=== PATIENT | male | born 1930 | race Caucasian/White ===

== ENCOUNTER → 2018-12-25 | Outpatient (CLI) | payer MEDICARE ==
[~2018-12-25] MED LIST: APIX5TAB PO; LISI1TAB7 PO; METO25TA35 PO; OMEP-110 PO; TRAZ150T62 PO; VERA240T86 PO; WARF4TAB65 PO
== END | disposition home or self-care (01) ==
LOC: CFH 11:40
PROVIDERS: ATTEND Family Medicine
DX: R49.0 Dysphonia (principal)
CPT/HCPCS: 71046

== ENCOUNTER → 2019-04-11 | Outpatient (CLI) | payer MEDICARE ==
[~2019-04-11] MED LIST changes: +VERA240T10 PO; -VERA240T86 PO
== END | disposition home or self-care (01) ==
LOC: CFH 14:28
PROVIDERS: ATTEND Family Medicine
DX: R06.02 Shortness of breath (principal); Z95.0 Presence of cardiac pacemaker
CPT/HCPCS: 71046

== ENCOUNTER 2020-01-16 13:16 | Observation (INO) | payer MEDICARE ==
[~2020-01-16] VITALS: Ht 170.2 cm; Wt 69.4 kg
[~2020-01-16 13:16] MED LIST changes: +ESCI5SOL2 PO; +GUAI100L11 PO; +LISI1TAB20 PO; -LISI1TAB7 PO; +LISI30TA4 PO; +METO-93 PO
--- NOTE | 2020-01-16 13:48 | NUR ---
PT TO ROOM 24 VIA KATHI. PT WAS DISCHARGED FROM THE HOSPITAL THIS MORNING, AND THEY STOPPED AT [facility] ON THE WAY HOME TO GET HIS PRESCRIPTIONS. PT BECAME VERY WEAK AFTER WALKING FROM THE CAR TO THE PHARMACY. HE THEN BEGAN TO SWEAT AND FEEL EXTREMELY WEAK. KATHI CALLED, AND NOTICED ON INITIAL ASSESSMENT THAT BLOOD PRESSURE WAS LESS THAN 80 SYSTOLIC. IV STARTED IN RIGHT LOWER FOREARM AND 250ML NACL BOLUS GIVEN. PRESSURE INCREASED, BUT THEN IN DROPPED SIGNIFICANTLY WHEN HE STOOD UP. AFTER MUCH ASSESSMENT AND DISCUSSION, PT AGREED TO COME BACK TO ED. DAUGHTER AT BEDSIDE. PT PLACED IN GOWN, MONITOR APPLIED, WARM BLANKET GIVEN AND CALL LIGHT WITH INSTRUCTIONS. PT RESTING WITH DAUGHTER AT BEDSIDE.
[2020-01-16] MEDS ORDERED: SODIUM CHLORIDE FLUSH 10ML SYR IVF ONE (14:00)
[2020-01-16 14:07] LABS: BASOPHILS # (AUTO) 0.03 x10^3/uL (0-0.1); BASOPHILS % (AUTO) 0 % (0-1); EOSINOPHILS # (AUTO) 0.13 x10^3/uL (0-0.4); EOSINOPHILS % (AUTO) 1 % (1-7); LYMPHOCYTES # (AUTO) 1.24 x10^3/uL (1-3.4); LYMPHOCYTES % (AUTO) 13 % (22-44); MD NO; MEAN CORPUSCULAR HEMOGLOBIN 30.7 pg (27.5-34.5); MEAN CORPUSCULAR HGB CONC 32.9 g/dL (33.2-36.2); MEAN CORPUSCULAR VOLUME 93.3 fL (81-97); MEAN PLATELET VOLUME 9.3 fL (7.4-10.4); MONOCYTES # (AUTO) 0.69 x10^3/uL (0.2-0.8); MONOCYTES % (AUTO) 7 % (2-9); NEUTROPHILS # (AUTO) 7.85 x10^3/uL (1.8-6.8); NEUTROPHILS % (AUTO) 79 % (42-75); PLATELET COUNT 198 x10^3/uL (130-400); RED CELL DISTRIBUTION WIDTH 14.7 % (9.4-14.8)
[2020-01-16 14:13] LABS: ALBUMIN 3.4 g/dL (3.4-5.0); ANION GAP 4 mmol/L (5-15); CALCIUM 8.5 mg/dL (8.5-10.1); CHLORIDE 106 mmol/L (98-107); CREATININE 1.79 mg/dL (0.7-1.3)
[2020-01-16 14:16] LABS: TROPONIN I < 0.015 ng/mL (0.000-0.045)
--- NOTE | 2020-01-16 14:30 | NUR ---
PT LYING IN BED WITH FAMILY AT BEDSIDE. PT HAS NO C/O AT THIS TIME. WILL CONTINUE TO MONITOR.
--- NOTE | 2020-01-16 15:46 | NUR ---
PT RESTING IN BED. PT ABLE TO SIT UP WITHOUT DIFFICULTY FOR RN TO PLACE GOWN ON. PT DENIES ANY PAIN OR CONCERNS. PT STATES "I FEEL GREAT NOW". AWAITING MD TO COME TO ROOM. FAMILY AT BEDSIDE.
[2020-01-16] MEDS ORDERED: ACETAMINOPHEN 325 MG TABLET PO PRN (16:00)
[2020-01-16] MEDS ORDERED: LABETALOL 5MG/ML, 20ML IVPush PRN (16:00)
[2020-01-16] MEDS ORDERED: GUAIFENESIN/DM 200-20MG, 10ML UDC PO PRN (16:00)
[2020-01-16] MEDS ORDERED: LACTATED RINGERS 1,000 ML IV ONE (16:00)
[2020-01-16] MEDS ORDERED: ONDANSETRON ODT 4 MG PO PRN (16:00)
[2020-01-16] MEDS ORDERED: ONDANSETRON 2MG/ML, 2ML IVPush PRN (16:00)
[2020-01-16] MEDS ORDERED: POLYETHYLENE GLYCOL 17 GM PACKET PO PRN (16:00)
[2020-01-16] MEDS ORDERED: hydrALAzine 20 MG/ML, 1ML IVPush PRN (16:00)
[2020-01-16] MEDS ORDERED: BUTALB/APAP/CAFFEINE 50MG/325MG/40MG PO PRN ×4 (16:00→20:03)
--- NOTE | 2020-01-16 16:53 | NUR ---
REPORT TO TIFFANY. PT READIED FOR TRANSPORT.
--- NOTE | 2020-01-16 16:55 | NUR ---
RN CHARTED THAT IV WAS PLACED ON THE LEFT, IT IS ACTUALLY ON THE RIGHT.
--- NOTE | 2020-01-16 17:01 | NUR ---
REPORT TO TIFFANY DELGADILLO ON [facility]. IV REMAINS IN PLACE. PT READY FOR TRANSPORT TO FLOOR WITH DAUGHTER AT BEDSIDE.
[2020-01-16 17:44] VITALS: BP 128/83
[2020-01-16] MEDS: OMEPRAZOLE 20 MG CAPSULE.DR PO SCH (18:03)
[2020-01-16 18:12] VITALS: BP 118/78
[2020-01-16 19:11] VITALS: BP 145/85
[2020-01-16] MEDS: APIXABAN 2.5 MG TABLET PO SCH (20:41)
[2020-01-16] MEDS: TRAZODONE 50MG TABLET PO PRN (20:41)
[2020-01-17 00:48] VITALS: BP 111/74
[2020-01-17 05:35] LABS: BASOPHILS # (AUTO) 0.02 x10^3/uL (0-0.1); BASOPHILS % (AUTO) 0 % (0-1); EOSINOPHILS # (AUTO) 0.17 x10^3/uL (0-0.4); EOSINOPHILS % (AUTO) 2 % (1-7); LYMPHOCYTES # (AUTO) 1.41 x10^3/uL (1-3.4); LYMPHOCYTES % (AUTO) 20 % (22-44); MD NO; MEAN CORPUSCULAR HEMOGLOBIN 30.7 pg (27.5-34.5); MEAN CORPUSCULAR VOLUME 93.1 fL (81-97); MEAN PLATELET VOLUME 9.3 fL (7.4-10.4); MONOCYTES # (AUTO) 0.72 x10^3/uL (0.2-0.8); MONOCYTES % (AUTO) 10 % (2-9); NEUTROPHILS # (AUTO) 4.74 x10^3/uL (1.8-6.8); NEUTROPHILS % (AUTO) 67 % (42-75); PLATELET COUNT 158 x10^3/uL (130-400); RED BLOOD COUNT 5.09 x10^6/uL (4.38-5.82); RED CELL DISTRIBUTION WIDTH 14.9 % (9.4-14.8)
[2020-01-17 05:37] LABS: ANION GAP 7 mmol/L (5-15); CALCIUM 8.4 mg/dL (8.5-10.1); CHLORIDE 105 mmol/L (98-107); CREATININE 1.28 mg/dL (0.7-1.3)
[2020-01-17 06:48] VITALS: BP 136/82
[2020-01-17] MEDS: OMEPRAZOLE 20 MG CAPSULE.DR PO SCH ×2 (07:54→17:51)
[2020-01-17] MEDS ORDERED: METOPROLOL SUCCINATE 50 MG TAB.ER.24H PO SCH (09:00)
[2020-01-17] MEDS ORDERED: LISINOPRIL 10 MG TABLET PO SCH (09:00)
[2020-01-17] MEDS: VERAPAMIL ER 240MG TABLET.ER PO SCH (09:22)
[2020-01-17] MEDS: APIXABAN 2.5 MG TABLET PO SCH ×2 (09:22→20:47)
[2020-01-17] MEDS: ESCITALOPRAM 10MG TABLET PO SCH (09:23)
[2020-01-17 13:28] VITALS: BP 115/68
[2020-01-17 20:17] VITALS: BP 100/68
[2020-01-17] MEDS: TRAZODONE 50MG TABLET PO PRN (20:47)
[2020-01-18 00:55] VITALS: BP 107/72
[2020-01-18 07:32] VITALS: BP 128/86
[2020-01-18] MEDS: OMEPRAZOLE 20 MG CAPSULE.DR PO SCH (07:36)
[2020-01-18] MEDS: APIXABAN 2.5 MG TABLET PO SCH (07:36)
[2020-01-18] MEDS: ESCITALOPRAM 10MG TABLET PO SCH (07:37)
[2020-01-18] MEDS: VERAPAMIL ER 240MG TABLET.ER PO SCH (07:37)
[2020-01-18] MEDS ORDERED: METOPROLOL SUCCINATE 50 MG TAB.ER.24H PO SCH (09:00)
[2020-01-18] MEDS ORDERED: LISINOPRIL 10 MG TABLET PO SCH (09:00)
[2020-01-18 10:53] VITALS: BP 110/75
[2020-01-18 10:54] VITALS: BP 105/70
[2020-01-18 10:56] VITALS: BP 134/67
[2020-01-18] MEDS ORDERED: LISI-167 PO (11:28)
[2020-01-18] MEDS ORDERED: METO-93 PO ×2 (11:28)
[2020-01-19] MEDS ORDERED: TRAZ-96 PO (22:10)
[2020-01-23] MEDS ORDERED: METO25TA35 PO ×2 (13:26)
[2020-01-23] MEDS ORDERED: DILT240C55 PO (13:26)
== END 2020-01-18 12:50 | disposition home or self-care (01) ==
LOC: ED 14:08 → INTOOBSV 14:42 → EDIP 14:42 → 4EST 17:30 → DCLOUNGE 01-18 12:45
PROVIDERS: ADMIT Family Medicine; ATTEND Family Medicine
DX: I48.20 Chronic atrial fibrillation, unspecified (principal); D68.69 Other thrombophilia; R55 Syncope and collapse; E86.0 Dehydration; K21.9 Gastro-esophageal reflux disease without esophagitis; I11.0 Hypertensive heart disease with heart failure; I50.9 Heart failure, unspecified; F32.9 Major depressive disorder, single episode, unspecified; J98.11 Atelectasis; Z95.0 Presence of cardiac pacemaker
CPT/HCPCS: 36415; 71045; 80048; 82040; 83735; 84100; 84484; 85025; 93005; 96360; 96361; 97161; 97165; 99285; G0378; J7120

== ENCOUNTER 2020-02-12 11:33 | Inpatient (IN) | payer MEDICARE ==
[~2020-02-12] VITALS: Ht 170.2 cm; Wt 64.5 kg
[~2020-02-12 11:33] MED LIST changes: +DILT240C55 PO; +LISI-167 PO; +TRAZ-96 PO
[2020-02-12] MEDS ORDERED: SODIUM CHLORIDE 0.9% 1,000 ML IV ONE (12:01)
[2020-02-12] MEDS ORDERED: DILTIAZEM 5 MG/ML, 5ML IVPush ONE (12:30)
[2020-02-12] MEDS ORDERED: AZITHROMYCIN 500 MG in SODIUM CHLORIDE 0.9% 250 ML IVPB ONE (12:30)
[2020-02-12] MEDS ORDERED: SODIUM CHLORIDE FLUSH 10ML SYR IVF ONE (12:30)
[2020-02-12] MEDS ORDERED: CEFTRIAXONE PMX 1GM/50ML 50 ML IVPB ONE (12:30)
[2020-02-12] MEDS ORDERED: SODIUM CHLORIDE 0.9% 1,000ML IVBOLUS ONE (12:30)
[2020-02-12] MEDS ORDERED: CEFTRIAXONE PMX 1GM/50ML 50 ML ONE (12:38)
[2020-02-12 12:39] LABS: BASOPHILS # (AUTO) 0.01 x10^3/uL (0-0.1); BASOPHILS % (AUTO) 0 % (0-1); EOSINOPHILS # (AUTO) 0.07 x10^3/uL (0-0.4); EOSINOPHILS % (AUTO) 1 % (1-7); LYMPHOCYTES # (AUTO) 0.88 x10^3/uL (1-3.4); LYMPHOCYTES % (AUTO) 14 % (22-44); MD NO; MEAN CORPUSCULAR VOLUME 91.2 fL (81-97); MONOCYTES # (AUTO) 0.62 x10^3/uL (0.2-0.8); MONOCYTES % (AUTO) 10 % (2-9); NEUTROPHILS # (AUTO) 4.91 x10^3/uL (1.8-6.8); NEUTROPHILS % (AUTO) 76 % (42-75); PLATELET COUNT 189 x10^3/uL (130-400); RED BLOOD COUNT 5.07 x10^6/uL (4.38-5.82)
[2020-02-12] MEDS ORDERED: DILTIAZEM 5 MG/ML, 5ML ONE (12:40)
[2020-02-12 12:42] LABS: ALANINE AMINOTRANSFERASE 27 U/L (12-78); ALBUMIN 2.9 g/dL (3.4-5.0); ANION GAP 7 mmol/L (5-15); CALCIUM 8.7 mg/dL (8.5-10.1); CHLORIDE 108 mmol/L (98-107); CREATININE 0.89 mg/dL (0.7-1.3)
[2020-02-12 12:46] LABS: ALKALINE PHOSPHATASE 67 U/L (45-117); BILIRUBIN,TOTAL 0.7 mg/dL (0.2-1.0); TOTAL PROTEIN 6.7 g/dL (6.4-8.2)
[2020-02-12] MEDS ORDERED: SODIUM CHLORIDE FLUSH 10ML SYR IVF PRN (13:00)
--- NOTE | 2020-02-12 13:16 | NUR ---
BEDSIDE REPORT FROM XIOMARA DELGADILLO, PT RESTING IN [facility] WITH ABX INFUSING. PT TO BE ADMITTED. AWAITING BED ASSIGNMENT
--- NOTE | 2020-02-12 14:16 | NUR ---
BLANKET PROVIDED. PT RESTING IN [place], NO NEEDS AT THIS TIME.
--- NOTE | 2020-02-12 15:03 | NUR ---
UPDATED PTS DAUGHTER ON POC WITH PTS PERMISSION
[2020-02-12] MEDS ORDERED: POLYETHYLENE GLYCOL 17 GM PACKET PO PRN (16:00)
[2020-02-12] MEDS ORDERED: ONDANSETRON ODT 4 MG PO PRN (16:00)
[2020-02-12] MEDS ORDERED: DOCUSATE 100 MG CAPSULE PO PRN (16:00)
[2020-02-12] MEDS ORDERED: LIDODERM 5% PATCH TD PRN (16:00)
[2020-02-12] MEDS ORDERED: ACETAMINOPHEN 325 MG TABLET PO PRN (16:00)
[2020-02-12] MEDS ORDERED: hydrALAzine 20 MG/ML, 1ML IVPush PRN (16:00)
[2020-02-12] MEDS ORDERED: LABETALOL 5MG/ML, 20ML IVPush PRN (16:00)
[2020-02-12] MEDS ORDERED: ENOXAPARIN 40 MG/0.4 ML SQ SCH (16:00)
--- NOTE | 2020-02-12 16:15 | NUR ---
REPORT TO HARRISON DELGADILLO
[2020-02-12 16:35] LABS: INTERNATIONAL NORMALIZED RATIO 1.07 (0.93-1.1); PROTHROMBIN TIME 11.4 Seconds (9.6-11.5)
[2020-02-12 16:44] LABS: FREE T4 (FREE THYROXINE) 1.31 ng/dL (0.76-1.46)
[2020-02-12 16:45] VITALS: BP 154/75
[2020-02-12] MEDS: METOPROLOL TARTRATE 25 MG TAB PO SCH (16:57)
[2020-02-12] MEDS ORDERED: GUAIFENESIN/DM 200-20MG, 10ML UDC PO PRN (17:00)
[2020-02-12 20:47] VITALS: BP 157/84
[2020-02-12] MEDS: APIXABAN 5 MG TABLET PO SCH (20:47)
[2020-02-12] MEDS: TRAZODONE 50MG TABLET PO PRN (20:47)
[2020-02-13 02:00] VITALS: BP 133/76
[2020-02-13 05:47] VITALS: BP 143/78
[2020-02-13] MEDS: METOPROLOL TARTRATE 25 MG TAB PO SCH ×2 (05:47→17:21)
[2020-02-13 05:52] LABS: BASOPHILS # (AUTO) 0.03 x10^3/uL (0-0.1); BASOPHILS % (AUTO) 1 % (0-1); EOSINOPHILS # (AUTO) 0.14 x10^3/uL (0-0.4); EOSINOPHILS % (AUTO) 3 % (1-7); LYMPHOCYTES # (AUTO) 1.23 x10^3/uL (1-3.4); LYMPHOCYTES % (AUTO) 22 % (22-44); MD NO; MEAN CORPUSCULAR HEMOGLOBIN 30.3 pg (27.5-34.5); MEAN CORPUSCULAR HGB CONC 33.4 g/dL (33.2-36.2); MEAN CORPUSCULAR VOLUME 90.7 fL (81-97); MEAN PLATELET VOLUME 8.8 fL (7.4-10.4); MONOCYTES # (AUTO) 0.54 x10^3/uL (0.2-0.8); MONOCYTES % (AUTO) 10 % (2-9); NEUTROPHILS # (AUTO) 3.68 x10^3/uL (1.8-6.8); NEUTROPHILS % (AUTO) 65 % (42-75); PLATELET COUNT 165 x10^3/uL (130-400); RED BLOOD COUNT 4.72 x10^6/uL (4.38-5.82); RED CELL DISTRIBUTION WIDTH 14.2 % (9.4-14.8)
[2020-02-13 06:03] LABS: ALANINE AMINOTRANSFERASE 23 U/L (12-78); ALBUMIN 2.5 g/dL (3.4-5.0); ANION GAP 6 mmol/L (5-15); CALCIUM 8.5 mg/dL (8.5-10.1); CHLORIDE 108 mmol/L (98-107)
[2020-02-13 06:05] LABS: ALKALINE PHOSPHATASE 57 U/L (45-117); BILIRUBIN,TOTAL 0.7 mg/dL (0.2-1.0)
[2020-02-13] MEDS: APIXABAN 5 MG TABLET PO SCH ×2 (11:16→20:39)
[2020-02-13] MEDS: DILTIAZEM 240 MG CAP.ER.24H PO SCH (11:16)
[2020-02-13] MEDS: LISINOPRIL 10 MG TABLET PO SCH (11:16)
[2020-02-13] MEDS: ESCITALOPRAM 10MG TABLET PO SCH (11:16)
[2020-02-13 11:33] VITALS: BP 148/83
[2020-02-13 16:35] VITALS: BP 133/83
[2020-02-13] MEDS: AZITHROMYCIN 500 MG TABLET PO SCH (17:21)
[2020-02-13] MEDS: CEFTRIAXONE PMX 1GM/50ML 50 ML IV SCH (17:21)
[2020-02-13] MEDS: TRAZODONE 50MG TABLET PO PRN (20:39)
[2020-02-14 02:00] VITALS: BP 126/90
[2020-02-14] MEDS: METOPROLOL TARTRATE 25 MG TAB PO SCH ×2 (05:42→17:39)
[2020-02-14 08:00] VITALS: BP 142/74
[2020-02-14] MEDS: APIXABAN 5 MG TABLET PO SCH ×2 (09:41→21:21)
[2020-02-14] MEDS: LISINOPRIL 10 MG TABLET PO SCH (09:41)
[2020-02-14] MEDS: DILTIAZEM 240 MG CAP.ER.24H PO SCH (09:42)
[2020-02-14] MEDS: ESCITALOPRAM 10MG TABLET PO SCH (09:43)
[2020-02-14 12:35] VITALS: BP 159/70
[2020-02-14] MEDS ORDERED: FUROSEMIDE 20 MG/2 ML IV ONE (14:00)
[2020-02-14] MEDS: CEFTRIAXONE PMX 1GM/50ML 50 ML IV SCH (17:38)
[2020-02-14] MEDS: AZITHROMYCIN 500 MG TABLET PO SCH (17:39)
[2020-02-14 21:09] VITALS: BP 150/94
[2020-02-14] MEDS: TRAZODONE 50MG TABLET PO PRN (21:21)
[2020-02-15 01:52] VITALS: BP 131/71
[2020-02-15 05:32] VITALS: BP 130/81
[2020-02-15] MEDS: METOPROLOL TARTRATE 25 MG TAB PO SCH (05:33)
[2020-02-15 06:59] VITALS: BP 110/74
[2020-02-15] MEDS: LISINOPRIL 10 MG TABLET PO SCH (08:13)
[2020-02-15] MEDS: APIXABAN 5 MG TABLET PO SCH (08:13)
[2020-02-15] MEDS: DILTIAZEM 240 MG CAP.ER.24H PO SCH (08:13)
[2020-02-15] MEDS: ESCITALOPRAM 10MG TABLET PO SCH (08:13)
[2020-02-15] MEDS ORDERED: AZIT500T10 PO (10:18)
[2020-02-15] MEDS ORDERED: CEFD300C37 PO (10:18)
[2020-02-15] MEDS ORDERED: METO25TA35 PO (10:18)
== END 2020-02-15 12:56 | disposition home or self-care (01) | DRG 194 ==
LOC: ED 11:50 → EDIP 13:00 → 3WST 16:39 → 4EST 02-14 12:05
PROVIDERS: ADMIT Internal Medicine; ATTEND Internal Medicine
DX: J18.1 Lobar pneumonia, unspecified organism (principal); I48.20 Chronic atrial fibrillation, unspecified; R09.02 Hypoxemia; J15.9 Unspecified bacterial pneumonia; I25.10 Atherosclerotic heart disease of native coronary artery without angina pectoris; D72.810 Lymphocytopenia; I11.0 Hypertensive heart disease with heart failure; I44.30 Unspecified atrioventricular block; I50.9 Heart failure, unspecified; I08.1 Rheumatic disorders of both mitral and tricuspid valves; K21.9 Gastro-esophageal reflux disease without esophagitis; Z53.20 Procedure and treatment not carried out because of patient's decision for unspecified reasons; Z95.0 Presence of cardiac pacemaker; Z79.899 Other long term (current) drug therapy; Z20.828 Contact with and (suspected) exposure to other viral communicable diseases
CPT/HCPCS: 36415; 80053; 83605; 83735; 83880; 84100; 84145; 84439; 84443; 85025; 85610; 87040; 87070; 87205; 93005; 96374; G0378; J0456; J0696; J1940; J7030; J7050